=== PATIENT | female | born 1930 | race African-American/Black ===

== ENCOUNTER 2017-05-03 05:26 | Inpatient (IN) | payer MEDICARE, OTHER ==
[~2017-05-03] VITALS: Ht 162.6 cm; Wt 54.4 kg
[2017-05-03] MEDS ORDERED: Morphine Sulfate 2mg/ml Inj IVP ONE (05:30)
--- NOTE | 2017-05-03 06:19 | Emergency Room Report ---
History of Present Illness General Chief Complaint: Lower Back Pain or Injury Source: Patient, EMS (Imtiaz Lowe M.D.) Present Illness HPI The patient presents from an assisted-living situation. She is unable to ambulate. It's unknown if there was trauma. She complains of lower back pain that seems to be acute. Her history is limited. Pain is rated at 9/10, poorly characterized, lumbar area, seemingly not radiating, constant. There is no history of fevers, dysuria or trauma. No incontinence. No history of blood thinners and unknown if cancer. (Imtiaz Lowe M.D.) Allergies: Coded Allergies: No Known Allergies (Verified , 06/28/09) Patient History Limited by: language barrier Past Medical History: see triage record Social History: Denies: alcohol use, drug use Social History Narrative assisted living Now: No Reviewed Nursing Documentation: PMH: Agreed, PSxH: Agreed (Imtiaz Lowe M.D.) Nursing Documentation-PMH Past Medical History Deferred: No Family Available (Imtiaz Lowe M.D.) Review of Systems All Other Systems: limited (Imtiaz Lowe M.D.) Physical Exam Vital Signs Date Time Temp Pulse Resp B/P (MAP) Pulse Ox O2 Delivery O2 Flow Rate FiO2 05/03/17 05:22 97.5 102 15 169/122 98 Room Air Sp02 EP Interpretation: reviewed, normal General Appearance: well appearing, no apparent distress, GCS 15 Head: normocephalic Eyes: bilateral eye normal inspection, bilateral eye PERRL ENT: moist mucus membranes Neck: supple Respiratory: lungs clear, normal breath sounds Cardiovascular #1: regular rate, rhythm Cardiovascular #2: 2+ dorsalis pedis (R), 2+ dorsalis pedis (L) Gastrointestinal: normal inspection, normal bowel sounds, non tender, no mass, non-distended Genitourinary: CVA tenderness (R) Musculoskeletal: digits/nails normal, no calf tenderness, pelvis stable, tender - lower back - central, not point but lumbar area Neurologic: motor strength/tone normal, DTRs symmetric, sensory intact, speech normal Psychiatric: depressed affect Reflexes: 2+ knee (R), 2+ knee (L) Skin: other - hyperpigmented plaques on upper back (Imtiaz Lowe M.D.) Medical Decision Making Diagnostic Impression: Primary Impression: Compression fracture of first lumbar vertebra Qualified Codes: S32.010A - Wedge compression fracture of first lumbar vertebra, initial encounter for closed fracture Additional Impression: Compression fracture of body of thoracic vertebra ER Course Patient presents with back pain. History is extremely limited. Ddx: fracture, aneurism, contusion, strain amongst others. Exam consistent with possible fracture. Complicated patient requiring emergent and comprehensive evaluation. Evaluation with CTA abdomen to rule out aneurism, included spine, EKG, labs, UA. Patient treated with IV hydration and analgesia. Wetzel ordered as unable to sit or stand. Nepali salesperson stereo equipment requested. EKG without injury. Patient signed out to Dr. Young before labs and CT obtained. Patient improved with analgesia. (Imtiaz Loew M.D.) ER Course The patient presented for back pain. the patient been noted for several days. the patient was noted to have increased pain with ambulation but denied any recent trauma. Differential diagnosis included but was not limited to herniated disc, cauda equina syndrome, abdominal aortic aneurysm, perforated ulcer, spinal epidural abscess, spinal stenosis, lumbar fracture, metastatic lesion, pyelonephritis. A CT imaging of the chest abdomen and pelvis read by radiology showed a dilation of the biliary tree as well as compression fractures of the lower thoracic and lumbar spine. The patient was discussed with Dr. Haroon Tong for inpatient management due to panel physician Labs Test 05/03/17 05:50 White Blood Count 7.6 K/UL (4.8-10.8) Red Blood Count 4.09 M/UL (4.20-5.40) Hemoglobin 14.6 G/DL (12.0-16.0) Hematocrit 42.9 % (37.0-47.0) Mean Corpuscular Volume 105 FL (80-99) Mean Corpuscular Hemoglobin 35.7 PG (27.0-31.0) Mean Corpuscular Hemoglobin Concent 34.0 G/DL (32.0-36.0) Red Cell Distribution Width 12.6 % (11.6-14.8) Platelet Count 237 K/UL (150-450) Mean Platelet Volume 5.8 FL (6.5-10.1) Neutrophils (%) (Auto) 72.6 % (45.0-75.0) Lymphocytes (%) (Auto) 18.1 % (20.0-45.0) Monocytes (%) (Auto) 7.7 % (1.0-10.0) Eosinophils (%) (Auto) 0.7 % (0.0-3.0) Basophils (%) (Auto) 1.0 % (0.0-2.0) Erythrocyte Sedimentation Rate 25 MM/HR (0-42) Prothrombin Time 9.5 SEC (9.30-11.50) Prothromb Time International Ratio 0.9 (0.9-1.1) Activated Partial Thromboplast Time 25 SEC (23-33) Urine Color Pale yellow Urine Appearance Clear Urine pH 6 (4.5-8.0) Urine Specific [place] 1.015 (1.005-1.035) Urine Protein 1+ (NEGATIVE) Urine Glucose (UA) 4+ (NEGATIVE) Urine Ketones Negative (NEGATIVE) Urine Occult Blood Negative (NEGATIVE) Urine Nitrite Negative (NEGATIVE) Urine Bilirubin Negative (NEGATIVE) Urine Urobilinogen Normal MG/DL (0.0-1.0) Urine Leukocyte Esterase Negative (NEGATIVE) Urine RBC 0-2 /HPF (0 - 2) Urine WBC 0-2 /HPF (0 - 2) Urine Squamous Epithelial Cells Few /LPF (NONE/OCC) Urine Bacteria Few /HPF (NONE) Sodium Level 142 MMOL/L (136-145) Potassium Level 3.2 MMOL/L (3.5-5.1) Chloride Level 105 MMOL/L (98-107) Carbon Dioxide Level 28 MMOL/L (21-32) Anion Gap 9 mmol/L (5-15) Blood Urea Nitrogen 20 mg/dL (7-18) Creatinine 0.7 MG/DL (0.55-1.30) Estimat Glomerular Filtration Rate mL/min (>60) Glucose Level 336 MG/DL (74-106) Calcium Level 8.1 MG/DL (8.5-10.1) Total Bilirubin 0.5 MG/DL (0.2-1.0) Aspartate Amino Transf (AST/SGOT) 18 U/L (15-37) Alanine Aminotransferase (ALT/SGPT) 27 U/L (12-78) Alkaline Phosphatase 96 U/L (46-116) Total Creatine Kinase 34 U/L (26-308) Troponin I 0.005 ng/mL (0.000-0.056) C-Reactive Protein, Quantitative < 0.4 mg/dL (0.00-0.90) Pro-B-Type Natriuretic Peptide 120 pg/mL (0-125) Total Protein 6.9 G/DL (6.4-8.2) Albumin 3.1 G/DL (3.4-5.0) Globulin 3.8 g/dL Albumin/Globulin Ratio 0.8 (1.0-2.7) (Jesu Young) EKG Diagnostic Results Rate: tachycardiac Rhythm: NSR ST Segments: no acute changes (Imtiaz Lowe M.D.) Rhythm Strip Diag. Results EP Interpretation: yes Rhythm: no PVC's, no ectopy, other - ST (Imtiaz Lowe M.D.) Status: improved (Imtiaz Lowe M.D.) Status: unchanged (Jesu Young) Disposition: ADMITTED INPATIENT Condition: Serious Referrals: NOT CHOSEN SUZAN/,REFERRING (PCP) Imtiaz Lowe M.D. May 03, 2017 06:19 Jesu Young May 03, 2017 19:54
[2017-05-03 06:38] VITALS: BP 121/82
[2017-05-03 06:56] LABS: EOSINOPHILS % (AUTO) 0.7 % (0.0-3.0); LYMPHOCYTES % (AUTO) 18.1 % (20.0-45.0); MEAN CORPUSCULAR HEMOGLOBIN 35.7 PG (27.0-31.0); MEAN CORPUSCULAR VOLUME 105 FL (80-99); MEAN PLATELET VOLUME 5.8 FL (6.5-10.1); MONOCYTES % (AUTO) 7.7 % (1.0-10.0); NEUTROPHILS % (AUTO) 72.6 % (45.0-75.0); PLATELET COUNT 237 K/UL (150-450); RED BLOOD COUNT 4.09 M/UL (4.20-5.40); RED CELL DISTRIBUTION WIDTH 12.6 % (11.6-14.8); WHITE BLOOD COUNT 7.6 K/UL (4.8-10.8)
[2017-05-03 07:03] LABS: APPEARANCE,URINE CLEAR; KETONES,URINE NEGATIVE (NEGATIVE); LEUKOCYTE ESTERASE ,URINE NEGATIVE (NEGATIVE); NITRITE,URINE NEGATIVE (NEGATIVE); PH,URINE 6 (4.5-8.0); PROTEIN,URINE 1+ (NEGATIVE); UROBILINOGEN,URINE NORMAL MG/DL (0.0-1.0)
[2017-05-03 07:08] LABS: INR 0.9 (0.9-1.1); PROTHROMBIN TIME 9.5 SEC (9.30-11.50)
[2017-05-03 07:16] LABS: ANION GAP 9 mmol/L (5-15); CALCIUM 8.1 MG/DL (8.5-10.1); CARBON DIOXIDE 28 MMOL/L (21-32); CHLORIDE 105 MMOL/L (98-107); CREATININE 0.7 MG/DL (0.55-1.30); POTASSIUM 3.2 MMOL/L (3.5-5.1); SODIUM 142 MMOL/L (136-145)
[2017-05-03 07:18] VITALS: BP 150/88
[2017-05-03 07:20] LABS: BACTERIA,URINE FEW /HPF; RBC,URINE 0-2 /HPF (0 - 2); SQUAMOUS EPITHELIAL CELL,UR FEW /LPF (NONE/OCC); WBC,URINE 0-2 /HPF (0 - 2)
[2017-05-03 07:39] LABS: ALANINE AMINOTRANSFERASE 27 U/L (12-78); ALBUMIN/GLOBULIN RATIO 0.8 (1.0-2.7); ASPARTATE AMINO TRANSFERASE 18 U/L (15-37); CRP QUANT < 0.4 mg/dL (0.00-0.90); TOTAL PROTEIN 6.9 G/DL (6.4-8.2)
[2017-05-03 08:12] LABS: ERYTHROCYTE SEDIMENTATION RATE 25 MM/HR (0-42)
[2017-05-03 09:20] VITALS: BP 146/78
--- NOTE | 2017-05-03 09:32 | Diagnostic Imaging Report ---
Indication: Reason For Exam: PAIN Technique: XRAY Chest 1v Comparison:01/20/2011 Findings: The heart is enlarged. Aorta is elongated. Lungs are free of acute infiltrates. No pleural fluid. The bones are osteopenic. Impression: Cardiomegaly. Atherosclerotic change. Osteopenia.
[2017-05-03] MEDS ORDERED: Zolpidem 5mg tab ORAL PRN (13:45)
--- NOTE | 2017-05-03 14:20 | History & Physical ---
History and Physical History & Physicial HP dictated # [id number] BARRETT GOODE May 03, 2017 14:20
[2017-05-03] MEDS: Morphine Sulfate 2mg/ml Inj IVP PRN (14:36)
[2017-05-03] MEDS ORDERED: MELOXICAM7.5 MG PO (14:37)
[2017-05-03] MEDS ORDERED: TERBINAFINE HC250 MG PO (14:37)
[2017-05-03] MEDS ORDERED: NEXIUM40 MG ORAL (14:37)
[2017-05-03] MEDS ORDERED: NORVASC5 MG ORAL (14:37)
[2017-05-03] MEDS ORDERED: INVOKANA100 MG PO (14:37)
[2017-05-03] MEDS ORDERED: CATAPRES0.1 MG ORAL (14:37)
[2017-05-03] MEDS ORDERED: ASPIRIN81 MG ORAL (14:37)
[2017-05-03] MEDS ORDERED: JANUVIA100 MG ORAL ×2 (14:37→14:44)
[2017-05-03 16:00] VITALS: BP 125/86
--- NOTE | 2017-05-03 18:00 | History and Physical Report ---
Renal Consult note DATE OF ADMISSION: 05/03/2017 CHIEF COMPLAINT: Back pain. The patient is unable to move. HISTORY OF PRESENT ILLNESS: This is a 86-year-old [place]ian female, who cannot give information. Information was obtained through the daughter who is at bedside. According to the daughter, the patient went to the doctor yesterday to get some x-rays and after the x-ray was taken she could not move. She came to the emergency room today for lower back pain and also inability to move. Usually she is able to sit in the chair, although she is non-ambulatory. In the emergency room, the workup showed the patient had a T8 and L1 fracture. This is per ER report. There is no radiology report in the chart at this point. The patient was admitted for further care. I was asked to manage patient's hypertension. PAST MEDICAL HISTORY: History of non-insulin dependent diabetes mellitus as well as hypertension. MEDICATIONS: Reviewed and and reconciled in the EMR. ALLERGIES: No known drug allergies. SOCIAL HISTORY: No history of smoking or alcohol abuse. The patient apparently lives at home with who is also elderly and have some help at home. REVIEW OF SYSTEMS: Noncontributory. PHYSICAL EXAMINATION: GENERAL: The patient is an elderly female, in no acute distress. VITAL SIGNS: Blood pressure is 146/78, pulse 99, temperature 97.6 degrees, and respiratory rate is 20. HEENT: Sabin conjunctivae. Anicteric sclerae. NECK: Supple. LUNGS: Clear to auscultation. HEART: S1 and S2 without murmurs or rubs. ABDOMEN: Soft and nontender. EXTREMITIES: No cyanosis or edema. LABORATORY AND DIAGNOSTIC DATA: The CBC shows WBC of 7.6, hematocrit is 42.9, hemoglobin 14.6, and platelets 237,000. The chemistry panel shows a serum sodium of 143, potassium 3.2, chloride 105, BUN 28, creatinine 0.7, blood sugar is 336, and calcium is 8.1. Albumin is 3.1. UA is unremarkable. Chest x-ray was normal. ASSESSMENT: This is an 86-year-old female, who was admitted with back pain and diagnosis of compression fractures of T8 and L1 from osteoporosis. She has history of diabetes and hypertension. PLAN: The patient will be on IV pain medications. PT and OT evaluation will be done and we will continue current medications. The patient will likely need to go to [facility] facility, as the patient cannot be taken care at home at this time. Haroon Tong M.D. DR: MAURICIO JOB#: [id number] CC: MELODIE
[2017-05-03] MEDS: NovoLOG Insulin Flexpen SUBQ SCH ×2 (18:11→20:08)
--- NOTE | 2017-05-03 19:08 | Cardiology Report ---
APPROVED REPORT EKG Measurement Heart [id number] Sinus tachycardia with premature atrial complexes Possible Left atrial enlargement Left axis deviation Low voltage QRS Abnormal ECG
[2017-05-03 20:00] VITALS: BP 124/75
[2017-05-03] MEDS ORDERED: Vitamin A&D Oint 2oz Tube TOPIC SCH (21:00)
[2017-05-03] MEDS: Vitamin A&D Oint 2oz Tube TOPIC SCH (21:19)
[2017-05-04] VITALS: BP 144/71
[2017-05-04 04:00] VITALS: BP 132/83
[2017-05-04] MEDS: Morphine Sulfate 2mg/ml Inj IVP PRN ×3 (04:09→15:54)
[2017-05-04] MEDS: NovoLOG Insulin Flexpen SUBQ SCH ×4 (06:11→20:49)
[2017-05-04 08:00] VITALS: BP 144/79
[2017-05-04] MEDS: Vitamin A&D Oint 2oz Tube TOPIC SCH ×2 (08:33→20:46)
--- NOTE | 2017-05-04 11:35 | Nephrology Progress Note ---
Assessment/Plan Problem List: (1) HTN (hypertension) (2) Compression fracture of first lumbar vertebra (3) Compression fracture of body of thoracic vertebra (4) Unspecified injury of lower back, sequela (5) Low back pain (6) DM (diabetes mellitus) Assessment BP higher Pt has not been on BP meds since admission Plan low dose amlodipine pain meds Ortho consult PT Subjective Subjective In NAD Objective Objective Last 24 Hour Vital Signs Date Time Temp Pulse Resp B/P (MAP) Pulse Ox O2 Delivery O2 Flow Rate FiO2 05/04/17 08:00 97.0 92 18 144/79 95 Room Air 05/04/17 04:00 96 Room Air 05/04/17 04:00 97.7 87 20 132/83 96 Room Air 05/04/17 00:00 97.7 93 20 144/71 96 Room Air 05/04/17 00:00 96 Room Air 05/03/17 20:00 97.3 83 20 124/75 97 Room Air 05/03/17 20:00 97 Room Air 05/03/17 16:00 97.5 94 19 125/86 95 Room Air 05/03/17 15:06 97.6 05/03/17 13:25 97.6 88 18 138/84 99 Room Air Intake and Output 05/03/17 05/04/17 19:00 07:00 Intake Total 390 ml 650 ml Output Total 350 ml Balance 40 ml 650 ml Intake Oral 240 ml IV Total 150 ml 650 ml Output Urine Total 350 ml Laboratory Tests 05/04/17 05:50: Hemoglobin A1c 9.4H Height (Feet): 5 Height (Inches): 4.00 Weight (Pounds): 120 Cardiovascular: normal rate Respiratory/Chest: lungs clear Extremities: other - no edema BARRETT GOODE May 04, 2017 11:35
[2017-05-04 12:13] VITALS: BP 126/75
[2017-05-04] MEDS: Milk of Magnesia 30ml Ud ORAL PRN (12:41)
[2017-05-04 16:00] VITALS: BP 135/85
--- NOTE | 2017-05-04 16:04 | Diagnostic Imaging Report ---
Indication: Chest and abdominal pain Technique: Continuous helical transaxial imaging of the chest, abdomen and pelvis was obtained from the thoracic inlet to the pubic symphysis during rapid intravenous contrast administration. Arterial phase of enhancement obtained. Coronal 2-D reformats were also obtained and maximum intensity projection images in multiple planes. Study obtained in a Siemens sensation [address] Total Dose length Product (DLP): [address] Dose Index Volume (CTDIvol): 0.15 x 2, 8.11 x 4, 11.13, 8.96 mGy Comparison: None Findings: There is a moderate degree of mural calcification and thrombus. The aorta is tortuous and mildly ectatic. There is no aneurysm or dissection identified involving the thoracic or abdominal aorta brachiocephalic artery, left common carotid artery and left subclavian arteries appear grossly patent. The left vertebral artery arises from the aorta directly and is associated with moderate plaque at the origin of the vessel. Due to the small caliber of the left vertebral artery the degree of stenosis is difficult to estimate. Tendons of the abdominal aorta and branches, the celiac artery and SMA both demonstrate moderate stenosis at the origin. There is moderate stenosis of the proximal right renal artery. There is moderate stenosis of the left renal artery due to heterogeneous plaque. There is no aneurysm. The heart is enlarged. Pulmonary reticular densities demonstrated posteriorly likely atelectasis or scarring. There is no consolidation identified. No adenopathy or abnormal fluid collections are seen. There is a moderate degree of stool in the colon. Gallbladder is absent. Biliary ducts are mildly prominent. Please correlate clinically. There is no free fluid. Compression fracture deformities T8 vertebra, L1 and L2 vertebra also noted. IMPRESSION: No evidence of aortic dissection or aneurysm involving the thoracic or abdominal aorta. 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 Post cholecystectomy. Prominent biliary ducts. Please correlate clinically. Compression fracture deformities of several vertebra probably old. Please correlate clinically. Dr. Arturo Castelan has communicated the preliminary results to the Emergency Department. There are no significant discrepancies. The CT scanner at [facility] is accredited by the [employer] and the scans are performed using dose optimization techniques as appropriate to a performed exam including Automatic Exposure control.
--- NOTE | 2017-05-04 18:03 | Wound Care Consultation ---
Wound Assessment Wound Assessment #1: Wound Number: 1 Wound Present on Admission: Yes New Wound: No Status Change of Wound: No Wound Location Body Site Modif: mid Wound Location Body Site: other - Sacrococcygeal Wound Type: pressure ulcer Hussein Test: Does not Hussein Pressure Ulcer Stage: Deep Tissue Injury Wound Thickness: Full Thickness Wound Length: 4.5 Wound Width: 4.0 Wound Depth: utd Percent of Wound Purple/Maroon: 100 Wound Drainage Amount: None Wound Drainage Odor: None/Absent Tissue Surrounding Wound: Erythemic Wound General Appearance: Reddened - purple Wound Assessment #2: Wound Number: 2 Wound Present on Admission: Yes New Wound: No Status Change of Wound: No Wound Location Body Site: perineal area Wound Type: chemical burn Hussein Test: Does not Hussein Percent of Wound [place]/Red: 100 Wound Drainage Amount: None Wound Drainage Odor: None/Absent Tissue Surrounding Wound: Erythemic Wound General Appearance: Reddened Wound Comment #1 Sacrococcygeal DTI pressure ulcer #2 Perineal chemical burn with erosion Recommendation -Local wound care per protocol -Keep clean and dry -Turn and reposition -Optimize nutrition -Low air loss mattress -Offload both heels -Heel protector on both heels -Assess and f/u accordingly for any changes GALE RICE RN May 04, 2017 18:03
[2017-05-04] MEDS ORDERED: 1/2 NS 1000ml IV ONE (18:05)
[2017-05-04] MEDS: Morphine Sulfate 4mg/ml Inj IVP PRN (18:53)
[2017-05-04 20:00] VITALS: BP 124/61
--- NOTE | 2017-05-04 22:30 | History and Physical Report ---
DATE OF ADMISSION: 05/03/2017 CHIEF COMPLAINT: Back pain. HISTORY OF PRESENT ILLNESS: This is an 86-year-old Persian woman who was brought in to [facility] for evaluation of back pain. The patient denies any recent fall, however, x-ray taken in the emergency room revealed T8 and L1 compression fracture. The patient has also decreased movement. Denies any urinary or fecal incontinence. No chest pain. No nausea or vomiting. No abdominal pain. No syncope. PAST MEDICAL HISTORY: 1. Yyp-lcmvaul-ndohywkqg diabetes. 2. Hypertension. MEDICATIONS AT HOME: Please refer to medication reconciliation. I have reviewed at length. ALLERGIES: No known drug allergies. FAMILY HISTORY: Reviewed, noncontributory. SOCIAL HISTORY: The patient is . No alcohol. No illicit drug use. No tobacco. The patient lives at home with , who is also elderly. REVIEW OF SYSTEMS: A 14-point review of systems done /updated.CONSTITUTIONAL: No malaise or fatigue. No fever. No chills. HEENT: No change in vision. No tinnitus. No epistaxis. No dysphagia. CARDIAC: No chest pain. No palpitations. History of hypertension. LUNGS: No history of COPD or asthma. No cough or wheezing. ABDOMEN: No nausea, vomiting, or abdominal pain. No diarrhea or constipation. NEUROLOGIC: No history of CVA or history of TIA. Reported decreased mobility. EXTREMITIES: Reported generalized pain and aching in multiple joints, knee, back, hips, ankles. All other systems reviewed and negative except for what was mentioned above. PHYSICAL EXAMINATION: GENERAL: The patient is lying in bed, in no acute distress. VITAL SIGNS: Blood pressure 146/78, pulse 99, temperature 97.6 degrees Fahrenheit, and respiratory rate of 20. HEENT: Eyes, anicteric. NECK: Supple. CARDIAC: S1, S2 normal. There is a 2/6 systolic murmur at the left sternal border. LUNGS: Clear. ABDOMEN: Soft, nontender, nondistended. No guarding. No rebound. EXTREMITIES: No edema or cyanosis. NEUROLOGIC: The patient follows commands. Moves extremities. LABORATORY AND DIAGNOSTIC DATA: Labs on admission, WBC 7.6, hemoglobin 14.3, hematocrit 42.9, and platelets 237,000. Sodium 143, potassium 3.2, chloride 105, bicarbonate 28, Cr 0.7, glucose 336, calcium 8.1, albumin 3.1. Urinalysis is unremarkable. Chest x-ray within normal. IMPRESSION: 1. Compression fracture, T8 and L1. 2. Osteoporosis. 3. Hypertension. 4. Ekt-dfcrtgb-ecezlmryp diabetes. 5. Gait impairment. 6. Hypokalemia. 7. Osteoarthritis. PLAN: 1. Pain control. 2. Physical therapy and occupational therapy evaluation.need lumbar brace 3. Fall precaution. 4. Glycemic control. 5. Potassium replete. 6. Recheck the electrolytes and replete as indicated. 7. DVT and GI prophylaxis. 8. Code status, full code. 9. The patient may benefit from a prison facility pending physical therapy evaluation. 10. Discussed with at bedside. All questions answered. Time spent in evaluation and intervention of care 70 minutes. Satnam Hurtado M.D. DR: ZABRINA JOB#: [id number] CC: MELODIE
[2017-05-05] VITALS: BP 156/77
[2017-05-05 04:00] VITALS: BP 141/67
[2017-05-05] MEDS: NovoLOG Insulin Flexpen SUBQ SCH ×4 (05:48→20:39)
[2017-05-05 06:44] LABS: ANION GAP 6 mmol/L (5-15); CALCIUM 7.7 MG/DL (8.5-10.1); CARBON DIOXIDE 28 MMOL/L (21-32); CHLORIDE 106 MMOL/L (98-107); CREATININE 0.6 MG/DL (0.55-1.30); POTASSIUM 4.4 MMOL/L (3.5-5.1); SODIUM 140 MMOL/L (136-145)
[2017-05-05] MEDS: Morphine Sulfate 2mg/ml Inj IVP PRN (06:46)
[2017-05-05] MEDS: Vitamin A&D Oint 2oz Tube TOPIC SCH ×2 (09:00→20:36)
[2017-05-05] MEDS: Morphine Sulfate 4mg/ml Inj IVP PRN ×2 (09:41→14:11)
--- NOTE | 2017-05-05 09:46 | General Progress Note ---
Assessment/Plan Status: doing well, stable Assessment/Plan IMPRESSION: 1. Compression fracture, T8 and L1. 2. Osteoporosis. 3. Hypertension. 4. Obg-ticoouh-yiomqftgi diabetes. 5. Gait impairment. 6. Hypokalemia. 7. Osteoarthritis. PLAN: 1. Pain control. 2. Physical therapy and occupational therapy evaluation.need lumbar brace 3. Fall precaution. 4. Glycemic control. 5. Potassium replete. 6. Recheck the electrolytes and replete as indicated. 7. DVT and GI prophylaxis. 8. Code status, full code. 9. The patient may benefit from a [facility] facility per physical therapy. reluctant to agree with SNF. will d/w sons Subjective Date patient seen: May 05, 2017 Time patient seen: 09:46 Constitutional: Denies: chills, diaphoresis, fever, malaise HEENT: Denies: blurred vision, tearing, double vision, ear discharge, nose pain , nose congestion, mouth pain, mouth swelling, other Cardiovascular: Denies: chest pain, edema, irregular heart rate, lightheadedness, palpitations, syncope Respiratory: Denies: cough, orthopnea, shortness of breath, SOB with excertion , SOB at rest, sputum, stridor, wheezing Gastrointestinal/Abdominal: Denies: abdomen distended, abdominal pain, black stools, tarry stools, blood in stool, constipated, diarrhea, difficulty swallowing, poor appetite, poor fluid intake, rectal bleeding, vomiting, other Genitourinary: Denies: burning, discharge, frequency, flank pain, hematuria, incontinence, pain, urgency, other Neurologic/Psychiatric: Denies: anxiety, depressed, emotional problems, headache, numbness, paresthesia, pre-existing deficit, seizure, tingling, tremors, weakness Endocrine: Denies: excessive sweating, increased thirst, unexplained weight loss Allergies: Coded Allergies: No Known Allergies (Verified , 06/28/09) All Systems: reviewed and negative except above Objective Last 24 Hour Vital Signs Date Time Temp Pulse Resp B/P (MAP) Pulse Ox O2 Delivery O2 Flow Rate FiO2 05/05/17 08:54 76 156/84 05/05/17 04:00 98.6 78 20 141/67 91 Room Air 05/05/17 00:00 97.5 81 20 156/77 97 Room Air 05/04/17 20:00 98.6 87 22 124/61 95 Room Air 05/04/17 16:00 98.1 85 18 135/85 95 Room Air 05/04/17 12:41 86 126/75 05/04/17 12:13 97.0 86 18 126/75 94 Room Air Intake and Output 05/04/17 05/05/17 19:00 07:00 Intake Total 980 ml 625 ml Output Total 850 ml Balance 980 ml -225 ml Intake Oral 480 ml IV Total 500 ml 625 ml Output Urine Total 850 ml Laboratory Tests 05/05/17 05:25: Sodium Level 140, Potassium Level 4.4, Chloride Level 106, Carbon Dioxide Level 28, Anion Gap 6, Blood Urea Nitrogen 24H, Creatinine 0.6, Estimat Glomerular Filtration Rate , Glucose Level 146H, Calcium Level 7.7L Height (Feet): 5 Height (Inches): 4.00 Weight (Pounds): 120 VANCE VALLES May 05, 2017 09:46
[2017-05-05 11:45] VITALS: BP 120/65
--- NOTE | 2017-05-05 15:54 | Nephrology Progress Note ---
Assessment/Plan Problem List: (1) HTN (hypertension) (2) Compression fracture of first lumbar vertebra (3) Compression fracture of body of thoracic vertebra (4) Unspecified injury of lower back, sequela (5) Low back pain (6) DM (diabetes mellitus) Assessment BP better Plan low dose amlodipine pain meds Ortho consult PT Subjective Subjective In NAD Objective Objective Last 24 Hour Vital Signs Date Time Temp Pulse Resp B/P (MAP) Pulse Ox O2 Delivery O2 Flow Rate FiO2 05/05/17 11:45 97.7 81 22 120/65 96 Room Air 05/05/17 08:54 76 156/84 05/05/17 04:00 98.6 78 20 141/67 91 Room Air 05/05/17 00:00 97.5 81 20 156/77 97 Room Air 05/04/17 20:00 98.6 87 22 124/61 95 Room Air 05/04/17 16:00 98.1 85 18 135/85 95 Room Air Intake and Output 05/04/17 05/05/17 19:00 07:00 Intake Total 980 ml 625 ml Output Total 850 ml Balance 980 ml -225 ml Intake Oral 480 ml IV Total 500 ml 625 ml Output Urine Total 850 ml Laboratory Tests 05/05/17 05:25: Sodium Level 140, Potassium Level 4.4, Chloride Level 106, Carbon Dioxide Level 28, Anion Gap 6, Blood Urea Nitrogen 24H, Creatinine 0.6, Estimat Glomerular Filtration Rate , Glucose Level 146H, Calcium Level 7.7L Height (Feet): 5 Height (Inches): 4.00 Weight (Pounds): 120 Cardiovascular: normal rate Respiratory/Chest: lungs clear Abdomen: soft BARRETT GOODE May 05, 2017 15:54
[2017-05-05 16:00] VITALS: BP 119/67
[2017-05-05] MEDS: Milk of Magnesia 30ml Ud ORAL PRN (17:12)
[2017-05-05 20:00] VITALS: BP 116/70
[2017-05-06] VITALS: BP 151/77
[2017-05-06 04:00] VITALS: BP 151/75
[2017-05-06] MEDS: Morphine Sulfate 4mg/ml Inj IVP PRN (05:02)
[2017-05-06] MEDS: NovoLOG Insulin Flexpen SUBQ SCH ×2 (06:06→12:28)
[2017-05-06 08:00] VITALS: BP 135/79
[2017-05-06] MEDS: Milk of Magnesia 30ml Ud ORAL PRN (10:25)
[2017-05-06] MEDS: Vitamin A&D Oint 2oz Tube TOPIC SCH (10:25)
--- NOTE | 2017-05-06 10:45 | Diagnostic Imaging Report ---
APPROVED REPORT CPT Code: 94451 Present Symptoms Comments: R/O DVT BILATERAL: Imaging reveals a patent deep venous system bilaterally. There is no evidence of thrombus within the femoral, popliteal or tibial segments. The greater saphenous veins are also within normal limits. Doppler indicates normal spontaneous flow within these segments.
--- NOTE | 2017-05-06 10:57 | General Progress Note ---
Assessment/Plan Status: doing well, stable, tolerating diet Assessment/Plan IMPRESSION: 1. Compression fracture, T8 and L1. 2. Osteoporosis. 3. Hypertension. 4. Xlu-nealjbz-mubgddovl diabetes. 5. Gait impairment. 6. Hypokalemia. 7. Osteoarthritis. PLAN: 1. Pain control. 2. Physical therapy and occupational therapy evaluation.need lumbar brace 3. Fall precaution. 4. Glycemic control. 5. Potassium replete. 6. Recheck the electrolytes and replete as indicated. 7. DVT and GI prophylaxis. 8. Code status, full code. 9. The patient may benefit from a snf facility per physical therapy. reluctant to agree with SNF. will d/w sons executive secretary social welfare consult re disposition SNF preferred by MD or home with HH Subjective Date patient seen: May 06, 2018 Time patient seen: 10:55 Constitutional: Reports: weakness Neurologic/Psychiatric: Reports: weakness Allergies: Coded Allergies: No Known Allergies (Verified , 06/28/09) All Systems: reviewed and negative except above Objective Last 24 Hour Vital Signs Date Time Temp Pulse Resp B/P (MAP) Pulse Ox O2 Delivery O2 Flow Rate FiO2 05/06/17 10:25 78 135/79 05/06/17 08:00 98.1 78 20 135/79 95 05/06/17 04:00 92 Room Air 05/06/17 04:00 96.4 81 20 151/75 92 Room Air 05/06/17 00:00 98.7 106 18 151/77 94 05/06/17 00:00 94 Room Air 05/05/17 20:00 95 Room Air 05/05/17 20:00 97.9 95 18 116/70 95 05/05/17 16:00 98.2 86 19 119/67 95 05/05/17 11:45 97.7 81 22 120/65 96 Room Air Intake and Output 05/05/17 05/06/17 19:00 07:00 Intake Total 872 ml 550 ml Output Total 1100 ml Balance -228 ml 550 ml Intake Oral 372 ml IV Total 500 ml 550 ml Output Urine Total 1100 ml Height (Feet): 5 Height (Inches): 4.00 Weight (Pounds): 120 VANCE VALLES May 06, 2017 10:57
--- NOTE | 2017-05-06 11:34 | Discharge Instructions ---
Discharge Instructions Discharge Instructions Follow up with: PCP Diet: 2 GM sodium (low sodium) Resume Normal Activity?: Yes For Congestive Heart Failure Reminder Report to your physician any weight gain of 5 pounds or more in one week. VANCE VALLES May 06, 2017 11:34
[2017-05-06 12:00] VITALS: BP 148/77
--- NOTE | 2017-05-06 12:50 | Nephrology Progress Note ---
Assessment/Plan Problem List: (1) HTN (hypertension) (2) Compression fracture of first lumbar vertebra (3) Compression fracture of body of thoracic vertebra (4) Unspecified injury of lower back, sequela (5) Low back pain (6) DM (diabetes mellitus) Assessment BP better Plan Increase Amlodipine Discussed with RN DC today Subjective Subjective In NAD Objective Objective Last 24 Hour Vital Signs Date Time Temp Pulse Resp B/P (MAP) Pulse Ox O2 Delivery O2 Flow Rate FiO2 05/06/17 12:00 97.9 94 17 148/77 95 05/06/17 10:25 78 135/79 05/06/17 08:00 98.1 78 20 135/79 95 05/06/17 04:00 92 Room Air 05/06/17 04:00 96.4 81 20 151/75 92 Room Air 05/06/17 00:00 98.7 106 18 151/77 94 05/06/17 00:00 94 Room Air 05/05/17 20:00 95 Room Air 05/05/17 20:00 97.9 95 18 116/70 95 05/05/17 16:00 98.2 86 19 119/67 95 Intake and Output 05/05/17 05/06/17 19:00 07:00 Intake Total 872 ml 550 ml Output Total 1100 ml Balance -228 ml 550 ml Intake Oral 372 ml IV Total 500 ml 550 ml Output Urine Total 1100 ml Height (Feet): 5 Height (Inches): 4.00 Weight (Pounds): 120 Cardiovascular: normal rate Respiratory/Chest: lungs clear Extremities: trace edema BARRETT GOODE May 06, 2017 12:50
[2017-05-06] MEDS ORDERED: 1/2 NS 1000ml IV ONE (15:09)
--- NOTE | 2017-05-07 08:39 | Discharge Summary ---
Discharge Summary Hospital Course Date of Admission May 03, 2017 at 11:12 Date of Discharge May 06, 2017 at 15:10 Admitting Diagnosis LUMBAR FRACTURE HPI Jenny Paredes is a 86 year old female who was admitted on May 03, 2017 at 11:12 for Lumbar Fracture Hospital Course This is an 86-year-old Bengali woman who was brought in to [facility] for evaluation of back pain. The patient denies any recent fall, however, x-ray taken in the emergency room revealed T8 and L1 compression fracture. The patient has also decreased movement. Denies any urinary or fecal incontinence. No chest pain. No nausea or vomiting. No abdominal pain. No syncope. She was given bautista management and underwent PT/OT. she was recommended a lumbar brace. Potassium was repleted. Amlodipine was increased for better BP control. The patient may benefit from a care home facility per physical therapy. reluctant to agree with SNF. She was discharged home with HH. IMPRESSION: 1. Compression fracture, T8 and L1. 2. Osteoporosis. 3. Hypertension. 4. Hio-nyjvbai-eeqynwnwh diabetes. 5. Gait impairment. 6. Hypokalemia. 7. Osteoarthritis. --I have been assigned to complete a Dc summary on thsi account, I luke garibayot involved with the patient management--Luis Panchal NP Discharge Discharge Disposition Patient was discharged to Home (01) Discharge Diagnoses: Discharge Instructions Discharge Instructions Follow up with: PCP Damaris Panchal NP May 07, 2017 08:39
== END 2017-05-06 15:10 | disposition home health service (06) | DRG 544 ==
LOC: EDBD 05:26 → EMR 05:30 → EDBEDREQSVC 11:08 → 4E 11:12 → EDBEDREQ 11:54
DX: M80.08XA Age-related osteoporosis with current pathological fracture, vertebra(e), initial encounter for fracture (principal); E11.9 Type 2 diabetes mellitus without complications; I10 Essential (primary) hypertension; E87.6 Hypokalemia; M19.90 Unspecified osteoarthritis, unspecified site
CPT/HCPCS: 36415; 71010; 71275; 74174; 80048; 80053; 81003; 82550; 82962; 83036; 83880; 84484; 85025; 85610; 85651; 85730; 86140; 86850; 86900; 86901; 93005; 93970; 99285; J1815; J2405; J8499

== ENCOUNTER 2017-08-15 20:45 | Inpatient (IN) | payer MEDICARE, OTHER ==
[~2017-08-15] VITALS: Ht 162.6 cm; Wt 54.4 kg
[~2017-08-15 20:45] MED LIST: ASPIRIN81 MG ORAL; CATAPRES0.1 MG ORAL; INVOKANA100 MG PO; JANUVIA100 MG ORAL; MELOXICAM7.5 MG PO; NEXIUM40 MG ORAL; NORVASC5 MG ORAL; TERBINAFINE HC250 MG PO
--- NOTE | 2017-08-15 21:01 | Emergency Room Report ---
History of Present Illness General Chief Complaint: Altered Level of Consciousness Source: Family Member, Medical Record Present Illness HPI This is an 86 year-old Chinese female with a history hypertension diabetes. She is normally mostly bedbound. She was brought in by EMS with chief complaint of altered mental status. Per EMS, said that she is usually more alert and answering questions. She is now more sleepy and lethargic. Onset for last couple days. No fever chills. No nausea no vomiting. Decreased appetite. Allergies: Coded Allergies: No Known Allergies (Verified , 06/28/09) UNABLE TO ASSESS (Unverified , 08/15/17) Patient History Past Medical History: see triage record, old chart reviewed, DM, HTN Past Surgical History: other Pertinent Family History: none Social History: Denies: smoking Now: No Immunizations: other Reviewed Nursing Documentation: PMH: Agreed; PSxH: Agreed Nursing Documentation-PMH Past Medical History: No History, Except For Hx Cardiac Problems: Yes Hx Hypertension: Yes Hx Diabetes: Yes Hx Cancer: No Hx Gastrointestinal Problems: No Hx Neurological Problems: No Review of Systems Constitutional: Reports: malaise, weakness Eye: Denies: eye pain, blurred vision ENT: Denies: ear pain, nose congestion, throat swelling Respiratory: Denies: cough, shortness of breath Cardiovascular: Denies: chest pain, palpitations Gastrointestinal: Denies: abdominal pain, diarrhea, nausea, vomiting Musculoskeletal: Denies: back pain, joint pain Skin: Denies: rash Neurological: Denies: headache, numbness Endocrine: Denies: increased thirst, increased urine Hematologic/Lymphatic: Denies: easy bruising All Other Systems: negative except mentioned in HPI Physical Exam Vital Signs Date Time Temp Pulse Resp B/P (MAP) Pulse Ox O2 Delivery O2 Flow Rate FiO2 08/15/17 20:42 98.6 93 30 113/76 96 Room Air 98.6 vitals tachypnea Sp02 EP Interpretation: reviewed, normal General Appearance: mild distress, lethargic, Chronically Ill Head: normocephalic, atraumatic Eyes: bilateral eye PERRL, bilateral eye EOMI ENT: hearing grossly normal, normal pharynx, dry mucus membranes Neck: full range of motion, supple, no meningismus Respiratory: chest non-tender, lungs clear, normal breath sounds Cardiovascular #1: regular rate, rhythm, no murmur Gastrointestinal: normal bowel sounds, non tender, no mass, no organomegaly, no bruit, non-distended Musculoskeletal: back normal, normal range of motion Neurologic: grossly normal Psychiatric: mood/affect normal Skin: warm/dry Medical Decision Making Diagnostic Impression: Primary Impression: Acute metabolic encephalopathy Additional Impressions: UTI (urinary tract infection) Qualified Codes: N30.00 - Acute cystitis without hematuria Proteinuria Qualified Codes: R80.9 - Proteinuria, unspecified ER Course This patient presents with altered mental status. Her urine is very cloudy and has infection. This is most likely the cause of her altered mental status. IV fluid given. Antibiotics given. She seemed to be more alert. Because of her age and medical condition, will admit for further treatment. EKG Diagnostic Results Rate: normal Rhythm: NSR ST Segments: no acute changes Rhythm Strip Diag. Results Rhythm Strip Time: 21:01 EP Interpretation: yes Rate: 90 Rhythm: NSR, no PVC's, no ectopy Chest X-Ray Diagnostic Results Chest X-Ray Diagnostic Results : Chest X-Ray Ordered: Yes # of Views/Limited/Complete: 1 View Indication: Shortness of Breath EP Interpretation: Yes Interpretation: no consolidation, no effusion, no pneumothorax, no acute cardiopulmonary disease Impression: No acute disease Electronically Signed by: Jeffrey Arnold MD CT/MRI/US Diagnostic Results CT/MRI/US Diagnostic Results : Imaging Test Ordered: Ct head Impression Neg per radiologist. Last Vital Signs Date Time Temp Pulse Resp B/P (MAP) Pulse Ox O2 Delivery O2 Flow Rate FiO2 08/15/17 20:42 98.6 93 30 113/76 96 Room Air 98.6 Status: improved Disposition: ADMITTED INPATIENT Condition: Serious JEFFREY ARNOLD M.D. Aug 15, 2017 21:01
[2017-08-15 21:10] VITALS: BP 148/77
[2017-08-15 21:19] LABS: EOSINOPHILS % (AUTO) 3.2 % (0.0-3.0); HEMATOCRIT 38.2 % (37.0-47.0); HEMOGLOBIN 12.7 G/DL (12.0-16.0); MEAN CORPUSCULAR VOLUME 101 FL (80-99); MONOCYTES % (AUTO) 5.6 % (1.0-10.0); NEUTROPHILS % (AUTO) 71.2 % (45.0-75.0); PLATELET COUNT 272 K/UL (150-450); RED BLOOD COUNT 3.78 M/UL (4.20-5.40); WHITE BLOOD COUNT 9.8 K/UL (4.8-10.8)
[2017-08-15 21:33] LABS: APPEARANCE,URINE VERY CLOUDY; BILIRUBIN, URINE NEGATIVE (NEGATIVE); COLOR,URINE PALE YELLOW; GLUCOSE, URINE (UA) 4+ (NEGATIVE); KETONES,URINE NEGATIVE (NEGATIVE); LEUKOCYTE ESTERASE ,URINE 3+ (NEGATIVE); NITRITE,URINE NEGATIVE (NEGATIVE); PH,URINE 6.5 (4.5-8.0); PROTEIN,URINE 3+ (NEGATIVE); UROBILINOGEN,URINE NORMAL MG/DL (0.0-1.0)
[2017-08-15 21:34] LABS: ANION GAP 9 mmol/L (5-15); BLOOD UREA NITROGEN 30 mg/dL (7-18); CALCIUM 9.4 MG/DL (8.5-10.1); CARBON DIOXIDE 25 MMOL/L (21-32); CHLORIDE 101 MMOL/L (98-107); CREATININE 0.8 MG/DL (0.55-1.30); POTASSIUM 3.7 MMOL/L (3.5-5.1); SODIUM 135 MMOL/L (136-145)
[2017-08-15 21:45] LABS: ALANINE AMINOTRANSFERASE 20 U/L (12-78); ALBUMIN/GLOBULIN RATIO 0.6 (1.0-2.7); ALKALINE PHOSPHATASE 129 U/L (46-116); ASPARTATE AMINO TRANSFERASE 13 U/L (15-37); BILIRUBIN,TOTAL 0.4 MG/DL (0.2-1.0); CREATINE KINASE 17 U/L (26-308)
[2017-08-15] MEDS ORDERED: cefTRIAXone 1 GM in NS 55 ML IVPB ONE (21:45)
[2017-08-15 22:10] VITALS: BP 152/78
[2017-08-15] MEDS ORDERED: Zolpidem 5mg tab ORAL PRN (22:45)
[2017-08-15 23:10] VITALS: BP 120/76
[2017-08-16] VITALS: BP 158/81
[2017-08-16 04:00] VITALS: BP 157/84
[2017-08-16 07:16] LABS: BASOPHILS % (AUTO) 0.8 % (0.0-2.0); EOSINOPHILS % (AUTO) 3.5 % (0.0-3.0); HEMATOCRIT 32.8 % (37.0-47.0); LYMPHOCYTES % (AUTO) 16.4 % (20.0-45.0); MEAN CORPUSCULAR VOLUME 102 FL (80-99); MONOCYTES % (AUTO) 4.7 % (1.0-10.0); NEUTROPHILS % (AUTO) 74.6 % (45.0-75.0); PLATELET COUNT 249 K/UL (150-450); RED BLOOD COUNT 3.21 M/UL (4.20-5.40); RED CELL DISTRIBUTION WIDTH 14.8 % (11.6-14.8)
[2017-08-16] MEDS: Piperacillin/Tazobactam 2.25 GM in D5W 55 ML IVPB SCH ×3 (07:32→21:17)
[2017-08-16] MEDS: NovoLOG Insulin Flexpen SUBQ SCH ×4 (07:35→21:18)
[2017-08-16 07:50] LABS: ANION GAP 8 mmol/L (5-15); BLOOD UREA NITROGEN 22 mg/dL (7-18); CALCIUM 8.4 MG/DL (8.5-10.1); CARBON DIOXIDE 24 MMOL/L (21-32); CHLORIDE 106 MMOL/L (98-107); CHOLESTEROL 182 MG/DL (< 200); CREATININE 0.6 MG/DL (0.55-1.30); HDL CHOLESTEROL 85 MG/DL (40-60); POTASSIUM 3.5 MMOL/L (3.5-5.1); SODIUM 138 MMOL/L (136-145); TRIGLYCERIDES 118 MG/DL (30-150)
[2017-08-16 08:00] VITALS: BP 120/66
--- NOTE | 2017-08-16 09:23 | Diagnostic Imaging Report ---
Indication: Altered mental status Technique: Contiguous 5 mm thick transaxial imaging of the head obtained in a Siemens Sensation [address] scanner. Soft tissue and bone windows generated. Automatic Exposure Control was utilized. Total Dose length Product (DLP): 1347.[address] Dose Index Volume (CTDIvol): 70.38 mGy Comparison: none Findings: There is moderate prominence of the ventricles, basal cisterns, and cerebral sulci consistent with atrophy. Moderate, nonspecific, white matter hypoattenuation is noted throughout the brain consistent with chronic small vessel disease. There is no midline shift, edema, acute hemorrhage, mass effect, or abnormal extra-axial fluid collections. Bones and extra osseous soft tissues are unremarkable. Extensive opacification of the paranasal sinuses with thickened sinus husain noted. Impression: No acute intracranial bleed, mass effect or edema. Moderate atrophy of the brain. Evidence of chronic small vessel disease involving white matter tracts. Chronic pansinusitis. [facility] has communicated the preliminary results to the Emergency Department. Their findings are largely concordant with this report. The CT scanner at [facility] is accredited by the [employer] and the scans are performed using dose optimization techniques as appropriate to a performed exam including Automatic Exposure control.
--- NOTE | 2017-08-16 09:52 | Diagnostic Imaging Report ---
Indication: Dyspnea Comparison: 05/03/2017 A single view chest radiograph was obtained. Findings: No definite infiltrate or pulmonary vascular congestion identified. The heart is enlarged. The aorta is mildly enlarged consistent with atherosclerotic vascular disease. L2 kyphoplasty noted. The bones are osteopenic. Impression: No acute disease
[2017-08-16 12:00] VITALS: BP 126/73
[2017-08-16 16:00] VITALS: BP 131/77
[2017-08-16] MEDS ORDERED: Tubing IV Secondary IV ONE (18:18)
[2017-08-16] MEDS ORDERED: 1/2 NS 1000ml IV ONE (18:18)
--- NOTE | 2017-08-16 18:45 | History and Physical Report ---
DATE OF ADMISSION: 08/15/2017 CHIEF COMPLAINT: The patient was found to have change in mental status. HISTORY OF PRESENT ILLNESS: The patient is an 86-year-old Kazakh female with history of diabetes mellitus and hypertension, who is known to me from previous admission. Apparently the patient is almost bedbound now. She was brought in by paramedics for altered mental status. She was found to have urinary tract infection and was admitted. PAST MEDICAL HISTORY: Includes history of compression fracture T8 and L1, history of osteoporosis, hypertension, diabetes mellitus, and history of osteoarthritis. MEDICATIONS: Reviewed in the EMR. SOCIAL HISTORY: No history of smoking or alcohol abuse. ALLERGIES: No known drug allergies. REVIEW OF SYSTEMS: Noncontributory. PHYSICAL EXAMINATION: GENERAL: The patient is elderly female, in no acute distress. VITAL SIGNS: Blood pressure 128/66, pulse 82, temperature 98.6, respirations 20. HEENT: Somewhat pale conjunctivae. Anicteric sclerae. NECK: Supple. LUNGS: Clear to auscultation. HEART: S1 and S2 without murmurs or rubs. ABDOMEN: Soft and nontender. EXTREMITIES: No cyanosis or edema. LABORATORY FINDINGS: The chemistry panel shows serum sodium 138, potassium 3.5, chloride 106, CO2 24, BUN is 22, creatinine 0.6, blood sugar 193. Hemoglobin A1c 7.6. Calcium is 8.4. CBC shows a WBC of 10,000, hematocrit 32.8, hemoglobin 11, platelets 249,000. UA shows too numerous to count WBCs, moderate bacteria. ASSESSMENT: This is a 86-year-old Kazakh female who is admitted with change in mental status as a result of toxic metabolic encephalopathy from her urinary tract infection. PLAN: The patient will be on IV antibiotics and IV fluids. ID consultation will be obtained. The antibiotics will be adjusted based on the results of the culture. Thank you very much. Haroon Tong M.D. DR: Ralph JOB#: [id number] CC: MELODIE
[2017-08-16 20:00] VITALS: BP 138/78
[2017-08-17] VITALS: BP 136/76
[2017-08-17 04:00] VITALS: BP 139/73
[2017-08-17] MEDS: Piperacillin/Tazobactam 2.25 GM in D5W 55 ML IVPB SCH ×2 (05:44→14:11)
[2017-08-17] MEDS: NovoLOG Insulin Flexpen SUBQ SCH ×4 (06:02→21:07)
[2017-08-17 08:00] VITALS: BP 117/72
--- NOTE | 2017-08-17 11:15 | General Progress Note ---
Assessment/Plan Problem List: (1) UTI (urinary tract infection) ICD Codes: N39.0 - Urinary tract infection, site not specified SNOMED: 59737640 Qualifiers: Qualified Codes: N30.00 - Acute cystitis without hematuria (2) Acute metabolic encephalopathy ICD Codes: G93.41 - Metabolic encephalopathy SNOMED: 33037125, 519758629 (3) HTN (hypertension) ICD Codes: I10 - Essential (primary) hypertension SNOMED: 10511534 (4) DM (diabetes mellitus) ICD Codes: E11.9 - Type 2 diabetes mellitus without complications SNOMED: 65395075 Assessment/Plan abxs IVF start [place] PRN PRN Benadryl for itching discussed with RN Subjective Allergies: Coded Allergies: No Known Allergies (Verified , 06/28/09) UNABLE TO ASSESS (Unverified , 08/15/17) Subjective alert has pain according to RN and itching Objective Last 24 Hour Vital Signs Date Time Temp Pulse Resp B/P (MAP) Pulse Ox O2 Delivery O2 Flow Rate FiO2 08/17/17 08:00 97.2 86 18 117/72 94 Room Air 97.2 08/17/17 04:00 98.2 78 20 139/73 100 98.2 08/17/17 00:00 98.2 85 20 136/76 97 98.2 08/16/17 20:00 98.1 95 20 138/78 96 98.1 08/16/17 16:00 97.1 98 20 131/77 97 97.1 08/16/17 12:00 98.0 97 20 126/73 97 98.0 Intake and Output 08/16/17 08/17/17 19:00 07:00 Intake Total 690 ml 1025 ml Output Total 1500 ml 400 ml Balance -810 ml 625 ml Intake Oral 540 ml 200 ml IV Total 150 ml 825 ml Output Urine Total 1500 ml 400 ml # Bowel Movements 1 Height (Feet): 5 Height (Inches): 4.00 Weight (Pounds): 120 Cardiovascular: normal rate Respiratory/Chest: lungs clear Edema: no edema noted BARRETT Garcia Aug 17, 2017 11:15
[2017-08-17] MEDS: Norco 5mg/325mg tab ORAL PRN ×2 (11:48→18:09)
[2017-08-17 12:00] VITALS: BP 130/58
--- NOTE | 2017-08-17 15:15 | Consultation ---
DATE OF CONSULTATION: 08/17/2017 INFECTIOUS DISEASES CONSULTATION CONSULTING PHYSICIAN: Rudolph Tong M.D. PRIMARY ATTENDING PHYSICIAN: Haroon Tong M.D. REASON FOR CONSULT: UTI. HISTORY OF PRESENT ILLNESS: This is an 86-year-old female, admitted on August 15, 2017 with altered mental status. The patient was sleepy and lethargic and has decreased appetite. The patient was diagnosed with pyuria, UTI, and started on IV antibiotic. PAST MEDICAL HISTORY: Significant for diabetes mellitus type 2, hypertension, osteoporosis, and compression fracture of L1 and T8. ALLERGIES: No known drug allergy. MEDICATIONS: Insulin, Zosyn, sodium chloride, Tylenol, and Ambien. SOCIAL HISTORY: . No history of alcohol, drug abuse, or smoking. The patient is Jehovah witness. REVIEW OF SYSTEMS: Unobtainable. The patient states she wants to go home. PHYSICAL EXAMINATION: VITAL SIGNS: Temperature 97.2, pulse 86, and blood pressure is 117/72. GENERAL APPEARANCE: No acute distress. Awake and alert. HEAD AND NECK: [place] conjunctivae. HEART: Regular. LUNGS: Clear. ABDOMEN: Soft and nontender. GENITOURINARY: She has Wetzel catheter. EXTREMITIES: No edema. LABORATORY DATA: WBC 10, hemoglobin 11, hematocrit 32.8, and platelets 249. Sodium 138, potassium 3.5, chloride 106, bicarb 24, BUN 22, and creatinine 0.6. Glucose at the time of admission was 313, now decreased 193. Blood culture x2 are negative. Urine culture is pending. UA shows wbc too numerous to count, leukocyte esterase 2+, glucose 4+, and protein 2+. IMPRESSION: 1. Pyuria likely UTI. The patient also had proteinuria. 2. Diabetes mellitus type 2, that is with hyperglycemia. 3. Altered mental status. 4. Hypertension. 5. Osteoporosis. RECOMMENDATION: We will continue with Zosyn. We will follow up the cultures and adjust antibiotic. At the end of my exam, I thank Dr. Tong, for involving me in the care of this patient. Rudolph Tong M.D. : [facility] JOB#: [id number] CC: MELODIE
[2017-08-17 16:00] VITALS: BP 114/76
[2017-08-17 19:58] VITALS: BP 116/67
[2017-08-17] MEDS: Zoysn 3.37gm in NS 100ML IVPB SCH (21:09)
[2017-08-18 00:14] VITALS: BP 114/69
[2017-08-18 04:00] VITALS: BP 121/65
[2017-08-18] MEDS: Zoysn 3.37gm in NS 100ML IVPB SCH (05:05)
[2017-08-18] MEDS: NovoLOG Insulin Flexpen SUBQ SCH ×4 (05:49→20:28)
[2017-08-18 08:00] VITALS: BP 143/76
[2017-08-18] MEDS: Norco 5mg/325mg tab ORAL PRN (08:16)
--- NOTE | 2017-08-18 11:06 | General Progress Note ---
Assessment/Plan Problem List: (1) UTI (urinary tract infection) ICD Codes: N39.0 - Urinary tract infection, site not specified SNOMED: 02440394 Qualifiers: Qualified Codes: N30.00 - Acute cystitis without hematuria (2) Acute metabolic encephalopathy ICD Codes: G93.41 - Metabolic encephalopathy SNOMED: 13182845, 120341988 (3) HTN (hypertension) ICD Codes: I10 - Essential (primary) hypertension SNOMED: 27734872 (4) DM (diabetes mellitus) ICD Codes: E11.9 - Type 2 diabetes mellitus without complications SNOMED: 53620498 Status Narrative yeast in urine Assessment/Plan abxs add fluconazole? IVF cont [place] PRN PRN Benadryl for itching discussed with ID Subjective Allergies: Coded Allergies: No Known Allergies (Verified , 06/28/09) UNABLE TO ASSESS (Unverified , 08/15/17) Subjective In NAD Objective Last 24 Hour Vital Signs Date Time Temp Pulse Resp B/P (MAP) Pulse Ox O2 Delivery O2 Flow Rate FiO2 08/18/17 08:16 97.7 08/18/17 08:00 97.9 81 20 143/76 97 Room Air 97.9 08/18/17 04:00 97.7 68 19 121/65 97 97.7 08/18/17 00:14 98.0 71 18 114/69 97 98.0 08/17/17 19:58 97.9 77 17 116/67 97 97.9 08/17/17 16:00 97.7 80 18 114/76 97 Room Air 97.7 08/17/17 12:00 98.0 69 18 130/58 98 Room Air 98.0 Intake and Output 08/17/17 08/18/17 19:00 07:00 Intake Total 1645 ml 1065 ml Output Total 740 ml 650 ml Balance 905 ml 415 ml Intake Oral 840 ml 240 ml IV Total 805 ml 825 ml Output Urine Total 740 ml 650 ml # Voids 1 # Bowel Movements 1 Height (Feet): 5 Height (Inches): 4.00 Weight (Pounds): 120 Cardiovascular: normal rate Respiratory/Chest: lungs clear Edema: no edema noted BARRETT Garcia Aug 18, 2017 11:06
[2017-08-18 11:26] VITALS: BP 157/79
--- NOTE | 2017-08-18 12:03 | Infectious Diseases Prog Note ---
Assessment/Plan Assessment/Plan A: UTI, fungal Altered mental status Chronic sinusitis DM P: Discontinue Zosyn Start on Fluconazole Subjective ROS Limited/Unobtainable: Yes Allergies: Coded Allergies: No Known Allergies (Verified , 06/28/09) UNABLE TO ASSESS (Unverified , 08/15/17) Objective Vital Signs Last 24 Hour Vital Signs Date Time Temp Pulse Resp B/P (MAP) Pulse Ox O2 Delivery O2 Flow Rate FiO2 08/18/17 11:26 98.2 71 20 157/79 98 Room Air 98.2 08/18/17 08:16 97.7 08/18/17 08:00 97.9 81 20 143/76 97 Room Air 97.9 08/18/17 04:00 97.7 68 19 121/65 97 97.7 08/18/17 00:14 98.0 71 18 114/69 97 98.0 08/17/17 19:58 97.9 77 17 116/67 97 97.9 08/17/17 16:00 97.7 80 18 114/76 97 Room Air 97.7 Height (Feet): 5 Height (Inches): 4.00 Weight (Pounds): 120 General Appearance: no acute distress HEENT: mucous membranes moist Respiratory/Chest: lungs clear Cardiovascular: normal rate Abdomen: soft, non tender Extremities: no edema Neurologic/Psychiatric: other - sleeping Microbiology Date/Time Source Procedure Growth Status 08/15/17 21:00 Blood Blood Culture - Preliminary NO GROWTH AFTER 48 HOURS Resulted 08/15/17 20:45 Blood Blood Culture - Preliminary NO GROWTH AFTER 48 HOURS Resulted 08/15/17 21:10 Urine,Clean Catch Urine Culture - Preliminary YEAST YEAST#2 Resulted Current Medications Medications (Trade) Dose Ordered Sig/Chintan Route PRN Reason Start Time Stop Time Status Last Admin Dose Admin Acetaminophen (Tylenol) 650 mg Q4H PRN ORAL Mild Pain (Pain Scale 1-3) 08/15/17 22:45 09/14/17 22:44 08/17/17 09:02 Acetaminophen/ Hydrocodone Bitart ([place] 5/325) 1 tab Q4H PRN ORAL Moderate Pain (Pain Scale 4-6) 08/17/17 11:15 08/24/17 11:14 08/18/17 08:16 Dextrose (Dextrose 50%) 25 ml STAT PRN IV Hypoglycemia 08/15/17 23:00 09/14/17 22:59 Dextrose (Dextrose 50%) 50 ml STAT PRN IV Hypoglycemia 08/16/17 07:30 09/14/17 22:59 Diphenhydramine HCl (Benadryl) 25 mg Q6H PRN ORAL Itching 08/17/17 11:15 09/16/17 11:14 08/18/17 10:02 Fluconazole (Diflucan) 200 mg DAILY ORAL 08/18/17 12:00 08/25/17 11:59 UNV Insulin Aspart (NovoLOG) BEFORE MEALS AND HS SUBQ 08/16/17 06:30 09/15/17 06:29 08/18/17 05:49 Sodium Chloride 1,000 ml @ 75 mls/hr [id number] IV 08/15/17 23:40 09/14/17 23:39 08/18/17 05:05 Zolpidem Tartrate (Ambien) 5 mg HSPRN PRN ORAL Insomnia 08/15/17 22:45 08/22/17 22:44 ROSA GOODE Aug 18, 2017 12:03
[2017-08-18] MEDS: Fluconazole 100mg tab ORAL SCH (13:06)
[2017-08-18] MEDS ORDERED: 1/2 NS 1000ml IV ONE (14:32)
[2017-08-18] MEDS ORDERED: NS 275ml ONE (14:32)
[2017-08-18 16:00] VITALS: BP 147/69
[2017-08-18 20:00] VITALS: BP 142/87
[2017-08-19] VITALS: BP 149/90
[2017-08-19 04:00] VITALS: BP 166/86
[2017-08-19] MEDS: NovoLOG Insulin Flexpen SUBQ SCH ×4 (06:24→20:53)
[2017-08-19 08:36] VITALS: BP 159/81
[2017-08-19] MEDS: Fluconazole 100mg tab ORAL SCH (09:22)
[2017-08-19] MEDS ORDERED: DIFLUCAN100 MG ORAL (11:44)
[2017-08-19 12:00] VITALS: BP 167/93
--- NOTE | 2017-08-19 13:27 | Infectious Diseases Prog Note ---
Assessment/Plan Assessment/Plan A: UTI, fungal Altered mental status Chronic sinusitis DM P: Continue Fluconazole X 3 days agree with discharge Case was D/W PMD Subjective ROS Limited/Unobtainable: Yes Constitutional: Reports: no symptoms Allergies: Coded Allergies: No Known Allergies (Verified , 06/28/09) UNABLE TO ASSESS (Unverified , 08/15/17) Objective Vital Signs Last 24 Hour Vital Signs Date Time Temp Pulse Resp B/P (MAP) Pulse Ox O2 Delivery O2 Flow Rate FiO2 08/19/17 12:00 97.3 73 20 167/93 97 97.3 08/19/17 08:36 97.1 73 20 159/81 97 97.1 08/19/17 04:00 97.3 70 20 166/86 97 97.3 08/19/17 00:00 98.3 76 20 149/90 98 Room Air 98.3 08/18/17 20:00 98.1 89 20 142/87 97 98.1 08/18/17 16:00 97.3 84 20 147/69 96 Room Air 97.3 Height (Feet): 5 Height (Inches): 4.00 Weight (Pounds): 120 General Appearance: no acute distress Respiratory/Chest: lungs clear Cardiovascular: normal rate Abdomen: soft, non tender Extremities: no edema Neurologic/Psychiatric: alert, responsive Current Medications Medications (Trade) Dose Ordered Sig/Chintan Route PRN Reason Start Time Stop Time Status Last Admin Dose Admin Acetaminophen (Tylenol) 650 mg Q4H PRN ORAL Mild Pain (Pain Scale 1-3) 08/15/17 22:45 09/14/17 22:44 08/17/17 09:02 Acetaminophen/ Hydrocodone Bitart ([place] 5/325) 1 tab Q4H PRN ORAL Moderate Pain (Pain Scale 4-6) 08/17/17 11:15 08/24/17 11:14 08/18/17 08:16 Dextrose (Dextrose 50%) 25 ml STAT PRN IV Hypoglycemia 08/15/17 23:00 09/14/17 22:59 Dextrose (Dextrose 50%) 50 ml STAT PRN IV Hypoglycemia 08/16/17 07:30 09/14/17 22:59 Diphenhydramine HCl (Benadryl) 25 mg Q6H PRN ORAL Itching 08/17/17 11:15 09/16/17 11:14 08/18/17 16:11 Fluconazole (Diflucan) 200 mg DAILY ORAL 08/18/17 12:30 08/25/17 12:29 08/19/17 09:22 Insulin Aspart (NovoLOG) BEFORE MEALS AND HS SUBQ 08/16/17 06:30 09/15/17 06:29 08/19/17 12:17 Sodium Chloride 1,000 ml @ 75 mls/hr [id number] IV 08/15/17 23:40 09/14/17 23:39 08/19/17 06:33 Vitamin A/Vitamin D (A & D Oint) 1 applic EVERY 12 HOURS TOPIC 08/19/17 21:00 09/18/17 20:59 Zolpidem Tartrate (Ambien) 5 mg HSPRN PRN ORAL Insomnia 08/15/17 22:45 08/22/17 22:44 ROSA GOODE Aug 19, 2017 13:27
[2017-08-19 16:00] VITALS: BP 154/84
[2017-08-19] MEDS: Norco 5mg/325mg tab ORAL PRN (18:12)
[2017-08-19 20:00] VITALS: BP 146/81
[2017-08-19] MEDS ORDERED: Vitamin A&D Oint 2oz Tube TOPIC SCH ×2 (21:00)
[2017-08-19] MEDS ORDERED: 1/2 NS 1000ml IV ONE (23:09)
--- NOTE | 2017-08-20 12:34 | Discharge Summary ---
Discharge Summary Discharge Summary Discharge Summary DATE OF ADMISSION: 08/15/2017 DATE OF DISCHARGE: 08/19/2017 CONSULTANTS: Dr. Rudolph Tong BRIEF HOSPITAL COURSE: Patient is an 86-year-old [place] female, with history of diabetes mellitus and hypertension presented to ED after she was found to have change in mental status. Patient is almost bedbound. She was brought in by paramedics. On evaluation at ED, workup showed urinary tract infection. Urine WBC too many to count, urine RBC 2-4, 3+ leukocyte esterase, negative nitrite. Chest x-ray showed no acute cardiopulmonary disease. EKG was in normal sinus rhythm. Head CT with no acute intracranial bleed, mass effect or edema. She was admitted for evaluation of acute toxic metabolic encephalopathy secondary to urinary tract infection. She was given IV fluids. She was seen by infectious disease specialist and was given Zosyn. Urine culture with Jolie. Antibiotic was switched to fluconazole. She was given physical therapy and wound care. FINAL DIAGNOSES: Acute toxic metabolic encephalopathy secondary to urinary tract infection UTI with Jolie Hypertension diabetes mellitus Chronic sinusitis DISPOSITION: Patient was discharged home with home health DISCHARGE MEDICATIONS: Refer to Discharge Medication List. DISCHARGE INSTRUCTIONS: Follow up with PCP in a week. I have been assigned to dictate discharge summary on this account, and I was not involved in the patient's management. Damaris Panchal NP Aug 20, 2017 12:34
== END 2017-08-19 23:10 | disposition home health service (06) | DRG 757 ==
LOC: EDBD 20:45 → EMR 20:55 → 4E 22:01 → EDBEDREQ 22:19
DX: B37.49 Other urogenital candidiasis (principal); G92 Toxic encephalopathy; I10 Essential (primary) hypertension; M81.0 Age-related osteoporosis without current pathological fracture; M19.90 Unspecified osteoarthritis, unspecified site; E11.65 Type 2 diabetes mellitus with hyperglycemia; J32.9 Chronic sinusitis, unspecified; Z74.01 Bed confinement status; Z79.4 Long term (current) use of insulin
CPT/HCPCS: 36415; 70450; 71045; 80048; 80053; 80061; 81003; 82550; 82962; 83036; 83605; 83735; 83880; 84443; 84484; 85025; 87040; 87086; 93005; 99285; J1815